=== PATIENT | female | born 1985 | race Caucasian/White ===

== ENCOUNTER 2025-04-29 09:27 | Outpatient (AMB) | payer OTHER, SELFPAY ==
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
[2025-04-29 09:38] VITALS: BP 129/62; PULSE 62; RESP 14; TEMP 36.7; O2SAT 98; BMI 19.4
--- OUTSIDE RECORDS SUMMARY | 2025-04-29 09:50 | XMS_ITS | Clinical Summary ---
Author Organization [address] Address [address] [place] [phone] Phone Care Team Providers Care Spanish Lecturer Name Role Phone Idalmis Rosario MD Primary Care Provider [phone] Allergies Active Allergy Reactions Criticality Noted Date Comments Penicillins 01/08/2009 N/v diarrhia Medications copper (ParaGard T 380A) 380 square mm IUD 1 Device by Intrauterine route Once. [facility] 9 Active Active Problems Problem Noted Date Diagnosed Date Elevated LDL cholesterol level 10/13/2018 Elevated random blood glucose level 10/13/2018 Depressed mood 09/27/2018 Immunizations Name Administration Dates Next Due HPV 9-valent (Gardisil) 9yo to less than 46yo Td Tetanus diptheria (Tdvax) 7yo and older 01/20 Tdap Tetanus diptheria acell ular pertussis (Boostrix; Adacel) 7yo and older 02/02/2021 Surgical History Surgery Date Site/Laterality Comments DENTAL SURGERY PROCEDURE: [place] UNLISTED PROCEDURE DENTOALVEOLAR STRUCTURES SECTION PROCEDURE: HISTORICAL DELIVERY SECTION, LOW TRANSVERSE 2018 Medical History Medical History Date Comments Marijuana abuse DX:Marijuana abu se IUD (intrauterine device) in place 2017 DX:IUD (intrauterine device) in place; COMMENT: Paragard, placed at [facility] Abnormal Pap smear of cervix 2004 Gestational diabetes 2012 Family History Medical History Relation Name Comments Alcohol abuse Father KG Brain Aneurysm Father KG now has verti go Cancer Father KG Mental illness Father KG Stroke Father KG Genetic Disorder Father's Sister BG Dementia Maternal Grandmother BS Miscarriages / Stillbirths Maternal Grandmother BS Diabetes Mother CG Hypertension Mother CG Other: breast cyst Mother CG Heart disease Paternal Grandfather AG Developmental delay Son JL Seizures Son JL Breast cancer Neg Hx Colon cancer Neg Hx Kidney cancer Neg Hx Ovarian cancer Neg Hx Pancreatic cancer Neg Hx Uterine cancer Neg Hx Relation Name Status Comments Brother Alive healthy Father KG Alive HTN Father's Sister BG Maternal Grandfather lung ca ncer Maternal Grandmother BS Mother CG Alive HTN, allergic a sthma Paternal Grandfather AG CO at ? age Paternal Grandmother lung ca ncer Son JL Social History Tobacco Use Types Packs/Day Years Used Date Smoking Tobacco: Every Day Cigarettes 0.5 3 Last attempted to quit: 01/23/2018 Smokeless Tobacco: Never Tobacco Cessation:Ready to Q uit: Not Asked; Counseling Given: Not Answered Alcohol Use Standard Drinks/Week Comments Not Currently 0 (1 standard drink = 0.6 oz pur e alcohol) Housing Instability Answer Date Recorde d Are you worried that in the next 2 months you may not have stable housing? No 09/07/2024 Food Access & Nutrition Answer Date Rec orded Do you have access to a vari ety of food including fruits and vegetables? Yes 09/07/2024 Access to Healthcare Answer Date Record ed Within the last 3 months, ho w many times did you visit the emergency department for your medical care? 0 09/07/2024 Health Literacy Answer Date Recorded How often do you need to hav e someone help you when you read instructions, pamphlets, or other written material from your doctor or pharmacy? Rarely 09/07/2024 Caregiver: How often do you need to have someone help you when you read instructions, pamphlets, or other written material from your doctor or pharmacy? Not on file 09/07/2024 Financial Risk Answer Date Recorded How hard is it for you to pa y for the very basics like food, housing, medical care, and air conditioning / heating? Not very hard 09/07/2024 Transportation Answer Date Recorded Has the lack of transportati on kept you from meetings, work, or from getting things needed for daily living? No Has the lack of transportati on kept you from medical appointments or from getting medications? No 09/07/2024 Social Isolation Answer Date Recorded How often do you feel lonely or isolated from th ose around you? Often 09/07/2024 Food Risk Answer Date Recorded Within the past 12 months we worried whether our food would run out before we got money to buy more. Sometimes true 024 Within the past 12 months th e food we bought just didn't last and we didn't have money to get more. Sometimes true 09/07/2024 Dependent Care Answer Date Recorded Do you need help finding or paying for care for your loved ones. For example, child psychologist or elderly care for an older adult? No 09/07/2024 Education Answer Date Recorded Do you think completing more education or training, like finishing a GED, going to college, or learning a trade, would be helpful for you? Yes 09/07/2024 Employment and Income Answer Date Recor ded During the last four weeks, have you been actively looking for work? No 09/07/2024 Living Situation Answer Date Recorded What is your living situation? 1 11/08/2023 Comments No Sex and Gender Information Value Date Recorded Sex Assigned at Not on file Legal Sex Female 9:51 PM EST Gender Identity Not on file Sexual Orientation Not on file Obstetrics History Para Term AB IAB SAB Ectopic Multiple Livin g Live Births 3 3 2 1 0 0 0 0 0 2 3 Date Outcome GA Total Labor Labor/2nd/3rd Weight Sex Type Anes PTL Gena A1 A5 Name Clin Term Vag-S pont Livin g Term CS-Un spec Livin g 010 24w 5d 432 g (15.2 oz) F Vag-S pont Y Neona sang Demis e 0 0 Loreto Anne [place] Delivery Location:[facility] Comments:IUFD, CAN x 2 tight Last Filed Vital Signs Vital Sign Reading Time Taken Comments Blood Pressure 116/67 09/09/2024 2:47 PM EST Pulse 65 09/09/2024 2:47 PM EST Temperature 36.9 C (98.4 F) 09/09/2024 2:47 PM EST Respiratory Rate 14 09/09/2024 2:47 PM EST Oxygen Saturation - - Inhaled Oxygen Concentration - - Weight 48.3 kg (106 lb 6.4 oz) 09/09/2024 2:47 P M EST Height 160 cm (5' 3 ) 09/09/2024 2:47 PM EST Body Mass Index 18.85 09/09/2024 2:47 PM EST Plan of Treatment Upcoming Encounters Date Type Department Care Team (Late st Contact Info) Description 09/16/2025 9:45 AM EST Office Visit Obstetrics and Gynecology - [place] [address] [place] [phone] Tatiana Lemus, CNM [address] [place] [address] Health Maintenance Due Date Last Done Comments Hepatitis B Vaccines (1 of 3 - 19+ 3-dose series) 2002 Pneumococcal Vaccine: Pediatrics (0 to 5 Years) and At-Risk Patients (6 to 49 Years) (1 of 2 - PCV) 2002 Hepatitis C Screening 08/27/2022 COVID-19 Vaccine (1 - 2023-2 5 season) 2024 Depression Screening 09/25/2024 09/07/2024 HPV Vaccines (2 - 3-dose SCD M series) 10/07/2024 09/09/2024 Influenza Vaccine (#1) 2025 Social Influencers of Health Screening 09/07/2025 09/07/2024 Breast Cancer Screening 12/17/2025 12/18/19 24, 12/18/2023 Cholesterol Screening (Lipid Panel) 07/13/2026 07/13/2021 Cervical Cancer Screening: HPV 09/09/2029 1 11/10/2023, 05/22/2019 DTaP,Tdap,and Td Vaccines (3 - Td or Tdap) 02/02/2031 02/02/2021, 01/20/2009 HIV Screening Completed 11/19/2009 HIB Vaccines Aged Out No longer eligi ble based on patient's age to complete this topic Hepatitis A Vaccines Aged Out No long er eligible based on patient's age to complete this topic IPV Vaccines Aged Out No longer eligi ble based on patient's age to complete this topic MMR Vaccines Aged Out No longer eligi ble based on patient's age to complete this topic Meningococcal ACWY Vaccine Aged Out N o longer eligible based on patient's age to complete this topic Meningococcal B Vaccine Aged Out No l onger eligible based on patient's age to complete this topic RSV Immunization Patients Under 20 months Aged Out No longer eligible b ased on patient's age to complete this topic Varicella Vaccines Aged Out No longer eligible based on patient's age to complete this topic Procedures Procedure Name Priority Date/Time Associated Diagnosis Comments HPV WITH REFLEX GENOTYPE Routine 09/09/2024 3:17 PM EST Encounter for gynecological examination without abnormal finding SCREENING MAMMOGRAPHY BI 2-VIEW BREAST INC CAD Routine 12/18/2023 4:58 PM EDT Encounter for other screening for malignant neoplasm of breast LIPID PANEL Routine 07/13/2021 HM HIV SCREENING Routine 11/19/2009 from Last 3 Months or Most Recently Relevant to Health Maintenance Results * HPV with reflex genotype (09/09/2024 3:17 PM EST) HPV Negative Negative LAB MICROBIOLOGY METHOD 09/11/2024 2:25 PM EST [facility] [place] Cervix uteri structure / Unknown 09/09/2024 3:17 PM EST 09/11/2024 6:52 AM EST Mary APONTE LAB MOLECULAR DIAGNOSTICS O RDERABLES Final Result [facility] [address] [place] [address], * SCREENING MAMMOGRAPHY BI 2-VIEW BREAST INC CAD (12/18/2023 4:58 PM EDT) Anatomical Region Laterality Modality Radiographic Sharmila ging 12/13/2023 3:38 PM EDT Narrative 12/19/2023 2:18 PM EDT This is a summary report. The complete report is available in the patient's medical record. If you cannot access the medical record, please contact the sending organization for a detailed fax or copy. Exam: Screening mammogram Findings: Digital bilateral full-field screening mammography is performed with tomosynthesis and interpreted with the aid of computer-aided detection. This is a baseline exam. Breast parenchyma is extremely dense, limiting mammographic sensitivity. No suspicious mass, architectural distortion, or suspicious calcifications identified. Impression: No mammographic evidence of malignancy. BI-RADS 1 - negative Procedure Note Gosia Ge MD - 05/13/2024 This is a summary report. The complete report is available in thepatient's medical record. If you cannot access the medical record, pleasecontact the sending organization for a detailed fax or copy. Exam: Screening mammogram Findings: Digital bilateral full-field screening mammography is performedwith tomosynthesis and interpreted with the aid of computer-aideddetection. This is a baseline exam. Breast parenchyma is extremely dense, limiting mammographic sensitivity.No suspicious mass, architectural distortion, or suspicious calcificationsidentified. Impression: No mammographic evidence of malignancy. BI-RADS 1 - negative Idalmis Rosario MD IMG XR PROCEDURES Final Result * Lipid panel (07/13/2021) Pathologist [facility] LDL/HDL Ratio 3 0 - 4 Triglycerides 78 0 - 150 mg/dL Cholesterol 148 0 - 200 mg/dL HDL 60 >=40 mg/dL LDL Cholesterol 73 0 - 100 mg/dL Blood Venous blood specimen / Unknown Historical Provider LAB BLOOD ORDERABLES Marisa l Result * HIV Screening (11/19/2009) Pathologist [facility] HIV Screening Abstracted Historical Provider HEALTH MAINTENANCE Final Result from Last 3 Months or Most Recently Relevant to Health Maintenance Insurance [facility] [employer] Care Teams Spanish Lecturer Relationship Specialty Start Date End Date Idalmis Rosario MD [address] [place] [phone] PCP - General Internal Medicine 03/02/22
== END 2025-04-29 09:59 | disposition home or self-care (01) ==
LOC: HO.HMCSH 09:27
PROVIDERS: PCP Internal Medicine; Visit Provider Internal Medicine
DX: E78.5 Hyperlipidemia, unspecified (principal); M54.2 Cervicalgia

== ENCOUNTER → 2025-04-29 09:27 | Outpatient (BNVA) | payer OTHER, SELFPAY | PROVIDERS: PCP Internal Medicine; Visit Provider Internal Medicine | DX: M54.2 Cervicalgia (principal); E78.5 Hyperlipidemia, unspecified; H53.8 Other visual disturbances; H91.90 Unspecified hearing loss, unspecified ear | CPT/HCPCS: 99202 ==

== ENCOUNTER 2025-05-07 09:32 | Outpatient (REF) | payer OTHER, SELFPAY ==
--- NOTE | ~2025-05-07 | XR_ITS ---
EXAMINATION: XR CERVICAL SPINE CLINICAL INFORMATION: M54.2 - Cervicalgia COMPARISON: None available. TECHNIQUE: 4 views of the cervical spine were obtained. FINDINGS: No subluxation. No compression fracture. Degenerative changes with mild disc space narrowing and small marginal osteophytes at C6-C7. Odontoid process is well aligned with the lateral masses of C1. XR/XR cervical spine 3V IMPRESSION: Mild degenerative changes at C6-C7. Electronically signed by: Sarah Emerson MD 05/07/2025 10:35 AM EDT
--- OUTSIDE RECORDS SUMMARY | 2025-05-07 10:01 | XMS_ITS | Clinical Summary ---
Author Organization [address] Address [address] [place] [phone] Phone Care Team Providers Care Quality Rn Name Role Phone Idalmis Rosario MD Primary Care Provider [phone] Allergies Active Allergy Reactions Criticality Noted Date Comments Penicillins 01/08/2009 N/v diarrhia Medications copper (ParaGard T 380A) 380 square mm IUD 1 Device by Intrauterine route Once. [facility] 9 Active Active Problems Problem Noted [...] Surgery Date Site/Laterality Comments DENTAL SURGERY PROCEDURE: [place] UNLISTED PROCEDURE DENTOALVEOLAR STRUCTURES SECTION PROCEDURE: HISTORICAL DELIVERY SECTION, LOW TRANSVERSE 2018 Medical History Medical History Date Comments Marijuana abuse DX:Marijuana abu se IUD (intrauterine device) in place 2017 DX:IUD (intrauterine device) in place; COMMENT: Paragard, [place] [facility] Abnormal Pap smear of cervix 2004 Gestational [...] HTN, allergic a sthma Paternal Grandfather AG ND at ? age Paternal Grandmother lung ca [...] for your loved ones. For example, child and family services specialist or elderly care for an older adult? [...] sang Demis e 0 0 L[place]to Anne [place] Delivery Location:[facility] Comments:IUFD, CAN x 2 tight Last Filed [...] EST Office Visit Obstetrics and Gynecology - [place] [address] [place] [phone] Tatiana Lemus, CNM [address] [place] [address] Health Maintenance Due Date Last Done Comments [...] LAB MICROBIOLOGY METHOD 09/11/2024 2:25 PM EST [facility] [place] Cervix uteri structure / Unknown 09/09/2024 3:17 PM EST 09/11/2024 6:52 AM EST Mary APONTE LAB MOLECULAR DIAGNOSTICS O RDERABLES Final Result [facility] [address] [place] [address], * SCREENING MAMMOGRAPHY BI 2-VIEW BREAST INC [...] Final Result * Lipid panel (07/13/2021) Pathologist [facility] LDL/HDL Ratio 3 0 - 4 Triglycerides 78 0 - 150 mg/dL Cholesterol 148 0 - 200 mg/dL HDL 60 >=40 mg/dL LDL Cholesterol 73 0 - 100 mg/dL Blood Venous blood specimen / Unknown Historical Provider LAB BLOOD ORDERABLES Marisa l Result * HIV Screening (11/19/2009) Pathologist [facility] HIV Screening Abstracted Historical Provider HEALTH MAINTENANCE Final Result from Last 3 Months or Most Recently Relevant to Health Maintenance Insurance [facility] [employer] Care Teams Quality Rn Relationship Specialty Start Date End Date Idalmis Rosario MD [address] [place] [id number] PCP - General Internal Medicine 03/02/22
[2025-05-07 13:39] LABS: Appearance Urine Cloudy; Glucose Urine UA Negative (Negative); PH 5.5 (5.0-9.0); Specific Gravity - Urine 1.025 (1.005-1.025); UMIC TRIGGER UA YES
[2025-05-07 13:42] LABS: Hematocrit 42.4 % (37.0-47.0); Hemoglobin 13.9 g/dl (12.0-16.0); Mean Corpuscular HGB Conc 32.8 g/dl (31.0-35.0); Mean Corpuscular Hemoglobin 32.7 pg (27.0-33.0); Mean Corpuscular Volume 99.8 fL (80.0-98.0); NRBC Abs Auto 0.000 X10*3/uL (0.0-0.012); NRBC Pct Auto 0.0 /100WBC (0.0-0.2); Platelet Count 262 X10*3/uL (160-400); Red Blood Count 4.25 X10*6/uL (4.20-5.50); White Blood Count 7.2 X10*3/uL (4.8-10.8)
[2025-05-07 14:28] LABS: Alanine Aminotransferase 26 U/L (0-31); Albumin Level 4.6 g/dL (3.5-5.0); Alkaline Phosphatase 53 U/L (39-117); Anion Gap 13 (12-20); Aspartate Amino Transferase 32 U/L (5-31); Blood Urea Nitrogen 16 mg/dL (9-16); Calcium 9.1 mg/dL (8.4-10.2); Carbon Dioxide 29 mmol/L (22-29); Chloride 104 mmol/L (96-108); Cholesterol 200 mg/dL (<200); Estimated Glomerular Filt Rate > 60; HDL Cholesterol 61 mg/dL (>40); Potassium 3.7 mmol/L (3.3-5.1); Sodium 142 mmol/L (135-145); Total Protein 7.1 g/dL (6.5-8.0); Triglycerides 73 mg/dL (<150)
[2025-05-07 14:51] LABS: Thyroid Stimulating Hormone 0.99 uIU/mL (0.32-4.0)
== END 2025-05-07 09:33 | disposition home or self-care (01) ==
LOC: HO.HMGCX 09:32
PROVIDERS: PCP Internal Medicine; Visit Provider Internal Medicine
DX: M54.2 Cervicalgia (principal); E78.5 Hyperlipidemia, unspecified
CPT/HCPCS: 36415; 72040; 80048; 80061; 80076; 81001; 84443; 85027

== ENCOUNTER → 2025-05-07 09:52 | Outpatient (BNV) | payer OTHER, SELFPAY | PROVIDERS: PCP Internal Medicine; Visit Provider Radiology Body Imaging | DX: M54.2 Cervicalgia (principal) | CPT/HCPCS: 72040 ==

== ENCOUNTER 2025-06-19 13:32 | Outpatient (REF) | payer OTHER, SELFPAY | END 2025-06-19 13:33 | disposition home or self-care (01) | LOC: HO.SH 13:32 | PROVIDERS: Visit Provider Internal Medicine | DX: Z01.118 Encounter for examination of ears and hearing with other abnormal findings (principal); H90.3 Sensorineural hearing loss, bilateral | CPT/HCPCS: 92557 ==

== ENCOUNTER 2025-08-02 09:47 | Outpatient (REF) | payer OTHER, SELFPAY ==
--- OUTSIDE RECORDS SUMMARY | 2025-08-02 09:50 | XMS_ITS | Clinical Summary ---
Author Organization [address] Address [address] [place] [phone] Phone Care Team Providers Care Restaurant Worker Name Role Phone Idalmis Rosario MD Primary Care Provider [phone] Allergies Active Allergy Reactions Criticality Noted Date Comments Penicillins 01/08/2009 N/v diarrhia Medications copper (ParaGard T 380A) 380 square mm IUD 1 Device by Intrauterine route Once. [facility] 9 Active Active Problems Problem Noted Date Diagnosed Date Elevated LDL cholesterol level 10/13/2018 Elevated random blood glucose level 10/13/2018 Depressed mood 09/27/2018 Immunizations Immunization Administration Dates Next Due HPV 9-valent (Gardisil) 9yo to less than 46yo Td Tetanus diptheria (Tdvax) 7yo and older 01/20 Tdap Tetanus diptheria acell ular pertussis (Boostrix; Adacel) 7yo and older 02/02/2021 Surgical History Surgery Date Site/Laterality Comments DENTAL SURGERY PROCEDURE: [place] UNLISTED PROCEDURE DENTOALVEOLAR STRUCTURES SECTION PROCEDURE: HISTORICAL DELIVERY SECTION, LOW TRANSVERSE 2018 Medical History Medical History Date Comments Marijuana abuse DX:Marijuana abu se IUD (intrauterine device) in place 2017 DX:IUD (intrauterine device) in place; COMMENT: [place] [facility] [place] Pap smear of cervix 2004 Gestational [...] HTN, allergic a sthma Paternal Grandfather AG [place] at ? age Paternal Grandmother lung ca [...] care for your loved ones. For example, registered nurse maternal child or elderly care for an older adult? [...] Date Recorded What is your living situation? Unrecognized valu e 09/07/2024 Comments No Sex and Gender Information Value Date Recorded Sex Assigned at Not on file Legal Sex Female 9:51 PM EST Gender Identity Not on file Sexual Orientation Not on file Obstetrics History Para Term AB IAB SAB Ectopic Multiple Livin g Live Births 3 3 2 1 0 0 2 3 Date Outcome GA Total Labor Labor/2nd/3rd Weight Sex Type Anes PTL Gena A1 A5 Name Clin Term Vag-S pont Livin g Term CS-Un spec Livin g 010 24w 5d 432 g (15.2 oz) F Vag-S pont Y Neona sang Demis e 0 0 Loreto Rodríguez [place] Delivery Location:[facility] Comments:IUFD, CAN x 2 tight Last [...] EST Office Visit Obstetrics [facility]ne[facility] - [place] [address] [facility] [phone] Tatiana Lemus, CN [address] [facility] Health Maintenance Due Date Last Done Comments Hepatitis B Vaccines (1 of 3 - 19+ 3-dose series) 2002 Pneumococcal Vaccine: Pediatrics (0 to 5 Years) and At-Risk Patients (6 to 49 Years) (1 of 2 - PCV) 2002 Hepatitis C Screening 08/27/2022 Depression Screening 09/25/2024 09/07/2024 HPV Vaccines (2 - 3-dose SCD M series) 10/07/2024 09/09/2024 COVID-19 Vaccine (2023-2 5 season) 2025 Influenza Vaccine (#1) 2025 Social Influencers of Health Screening 09/07/2025 09/07/2024 Breast Cancer Screening 12/17/2025 12/18/19 24, 12/18/2023 Cholesterol Screening (Lipid Panel) 07/13/2026 07/13/2021 Cervical Cancer Screening: HPV 09/09/2029 1 11/10/2023, 05/22/2019 DTaP,Tdap,and Td Vaccines (3 - Td or Tdap) 02/02/2031 02/02/2021, 01/20/2009 RSV Immunization Adult Patients (1 - 1-dose 75+ series) 2058 HIV Screening Completed 11/19/2009 HIB Vaccines Aged [...] LAB MICROBIOLOGY METHOD 09/11/2024 2:25 PM EST [facility] Cervix uteri structure / Unknown 09/09/2024 3:17 PM EST 09/11/2024 6:52 AM EST Mary APONTE LAB MOLECULAR DIAGNOSTICS O RDERABLES Final Result [facility] [address] [place] [address], * SCREENING MAMMOGRAPHY BI 2-VIEW BREAST INC [...] Final Result * Lipid panel (07/13/2021) Pathologist [facility] LDL/HDL Ratio 3 0 - 4 Triglycerides 78 0 - 150 mg/dL Cholesterol 148 0 - 200 mg/dL HDL 60 >=40 mg/dL LDL Cholesterol 73 0 - 100 mg/dL Blood Venous blood specimen / Unknown Historical Provider LAB BLOOD ORDERABLES Marisa l Result * HIV Screening (11/19/2009) Pathologist [facility] HIV Screening Abstracted Historical Provider HEALTH MAINTENANCE Final Result from Last 3 Months or Most Recently Relevant to Health Maintenance Insurance [facility] Care Teams Restaurant Worker Relationship Specialty Start Date End Date Idalmis Rosario MD [address] [place] [phone] PCP - General Internal Medicine 03/02/22
== END 2025-08-02 09:48 | disposition home or self-care (01) ==
LOC: HO.MAMMO 09:47
PROVIDERS: PCP Internal Medicine; Visit Provider Internal Medicine
DX: Z12.31 Encounter for screening mammogram for malignant neoplasm of breast (principal)
CPT/HCPCS: 77063; 77067

== ENCOUNTER → 2025-08-02 10:00 | Outpatient (BNV) | payer OTHER, SELFPAY | PROVIDERS: PCP Internal Medicine; Visit Provider Internal Medicine | DX: Z12.31 Encounter for screening mammogram for malignant neoplasm of breast (principal) | CPT/HCPCS: 77063; 77067 ==

== ENCOUNTER 2025-08-19 14:57 | Outpatient (AMB) | payer OTHER, SELFPAY ==
[2025-08-19 15:00] VITALS: BP 125/58; PULSE 72; RESP 14; TEMP 36.7; O2SAT 99; BMI 19.4
--- NOTE | 2025-08-19 15:00 | A.OFFPC_ITS ---
Vital Signs 08/19/25 15:00 Height 5 ft 2.6 in Weight 108 lb BMI 19.4 BP 125/58 L Blood Pressure Location Lt brachial Position Sitting Respiration 14 Pulse 72 Pulse Source Pulse Oximeter Temp 98.1 F Temp Source Temporal Artery Scan Pulse Oximetry (%) 99 Oxygen Delivery Method Room Air Intake Visit Reasons: 3 month follow up Csw Required: No Accompanied by: Self / Same As Patient Allergies penicillin V Allergy (Unknown, Verified 08/19/25 15:01) N/V/D (childhood) Tobacco use date assessed: 08/19/25 Dental Screening Dental Screen Date: 04/29/25 HPI HPI Comments History of Present Illness Details History of Present Illness - The patient is a 40 year old individua l presenting for a three-month follow- up. - Following a recent audiology evaluatio n, the patient was diagnosed with moderate to severe hearing loss in both ears. - The dining room hostess informed the patient t hat the health insurance does not cover hearing aids and provided information for [employer], with which the patient has not yet followed up. - The patient reports ongoing neck pain and had a neck X-ray which revealed degenerative changes at C6-C7. - The patient experienced significant ne ck and upper back pain recently and sometimes notices a cracking sensation with head movement. - Previous concerns about progressive vi chanel blurriness have improved, and the patient reports no significant difficulties with driving or reading currently. - The patient reports doing well cogniti vely, despite a history of depression in 2018. - A mammogram was normal, though it show ed some density. - The patient smokes about 10 cigarettes a day and drinks alcohol very rarely. Social History - The patient lives with a and t wo children, ages 12 and 8. - The patient reports having support fro m the . - The patient works as a paraprofessiona l at an elementary school and reports being happy with the job. - The patient is able to function and pe rform all activities, reporting that stress is manageable. - Alcohol use is reported as very rare. - The patient smokes approximately 10 ci garettes per day. Results - Audiology: Testing revealed moderate t o severe hearing loss in both ears. - Imaging: X-ray of the neck showed dege nerative changes at C6_C7. - Mammogram: Normal, with some density r eported. [facility] Medical History (Updated 08/19/25 @ 15:19 by Moe Villeda MD) DJD (degenerative joint disease) of cervical spine Hyperlipidemia Family History Father BP (high blood pressure) Mother BP (high blood pressure) Diabetes Social History Housing: House Alcohol intake: current Alcohol intake frequency: holidays/special occasions only Patient Tobacco Use Status: Current everyday Tobacco user Cigarettes Per Day: 10 service: No Current occupational status: employed Cognitive needs: No Hearing needs: No Vision needs: No Questionnaire PHQ-9 Over the last 2 weeks, how often have you been bothered by any of the following problems? 1. Little interest or pleasure in doing things: not at all 2. Feeling down, depressed, or hopeless: not at all 3. Trouble falling or staying asleep, or sleeping too much: not at all 4. Feeling tired or having little energy: not at all 5. Poor appetite or overeating: not at all 6. Feeling bad about yourself - or that you are a failure or have let yourself or your family down: not at all 7. Trouble concentrating on things, such as reading the newspaper or watching television: not at all 8. Moving or speaking so slowly that other people could have noticed. Or the opposite - being so fidgety or restless that you have been moving around a lot more than usual: not at all 9. Thoughts that you would be better off or of hurting yourself in some wa y: not at all Total score: 0 Source: Developed by Drs. Juan Reed, Neris Sams, Hugo Humphreys and colleagues, with an educational morgan from [employer]. Thrive Questionnaire Date Thrive assessed: 04/29/25 I am a: Patient What is your living situation today?: I have a steady place to live Within the past 12 months, did the food you bought not last and you didn't have the money to get more?: Never true Within the past 12 months, did you worry whether your food would run out before you got money to buy more?: Never true Do you have trouble paying for medicines?: No Do you have trouble getting transportation to medical appointments?: No Do you have trouble paying your heating and electricity bill?: No Do you have trouble taking care of your child, family member or friend?: No Do you have trouble with day-to-day activities such as bathing, preparing meals, shopping, managing finances, etc.?: No Are you currently unemployed and looking for a job?: No Are you interested in more education?: No Please select the resources that you would like help with: None THRIVE Score: 0 AUDIT C Alcohol Use Questionnaire (AUDIT-C) 1. How often do you have a drink containing alcohol?: Monthly or less 2. How many drinks containing alcohol do you have on a typical day when you are drinking?: 1 or 2 3. How often do you have six or more drinks on one occasion?: Never Total Score: 1 ADAIR-7 AMB Questionnaire ADAIR-7 Date ADAIR - 7 assessed: 04/29/25 Feeling nervous, anxious, or on edge: 0 = Not at all Not being able to stop or control worryin = Not at all Worrying too much about different things: 0 = Not at all Trouble relaxin = Not at all Being so restless that it is hard to sit still: 0 = Not at all Becoming easily annoyed or irritable: 0 = Not at all Feeling afraid as if something awful might happen: 0 = Not at all Total ADAIR-7 score (0-4 normal; 5-9 mild; 10-14 moderate; 15-21 severe): 0 Source: Developed by Drs. Juan Rede, Neris Sams, Hugo Humphreys and colleagues, with an educational morgan from [employer]. Review of Systems Narrative Review of Systems - Eyes: Reports previous progressive blurriness has improved. Denies current significant vision difficulties. - ENT: Reports moderate to severe hearing loss in both ears. - Musculoskeletal: Reports neck and upper back pain, with occasional cracking sensation on head tilting. - Psychiatric: Denies significant stress or decline in cognitive function; reports sleeping well. Physical exam (Primary Care) Vital Signs: Last Vital Signs Temp 98.1 F 08/19/25 15:00 Pulse 72 08/19/25 15:00 Resp 14 08/19/25 15:00 BP 125/58 L 08/19/25 15:00 Pulse Ox 99 08/19/25 15:00 Oxygen Delivery Method Room Air 08/19/25 15:00 BMI result Body Mass Index 19.4 Tobacco/Smoking Status: Tobacco use Status Tobacco use date assessed 08/19/25 08/19/25 15:06 Patient Tobacco Use Status Current everyday Tobacco 08/19/25 15:06 PHQ-9: PHQ-9 Score PHQ-9: Total score 0 08/19/25 15:06 Thrive Assessment: Date of Thrive Assessment Date Thrive assessed 04/29/25 08/19/25 15:06 Narrative Physical Exam General: Appearance normal, both eyes and all related structures Nutritional Appearance: Well nourished Orientation/consciousness: Patient oriented x3 Limitations: No limitations Head: Normal to inspection Neck: C6, C7 degenerative changes noted; physical therapy recommended Chest: Normal palpation of entire chest wall Respiratory: Normal respiratory effort Neurology: Patient oriented x3 Office Procedures Flu Questionnaire Does the patient have a severe egg allergy?: No Does the patient have severe life threatening allergies?: No Does the patient have a fever or illness today?: No Has the patient ever had Guillain-Beeler Syndrome?: No Has the patient ever had any past reaction to a flu shot?: No Immunizations Fluarix [id number] (PF) 45 mcg (15 mcg x 3)/0.5 mL IM syringe Performing Provider: Moe Villeda MD [facility] [facility] [place] [facility] Documented (not given) by: RINA Ny on 08/19/25 15:06 Reason Not Given: Patient Refused Coding Level of Care Code Complex visit Add On G2211 Diagnoses DJD (degenerative joint disease) of cervical spine M47.812 Assessment & Plan Assessment & Plan (1) DJD (degenerative joint disease) of cervical spine: Code(s): M47.812 - Spondylosis without myelopathy or radiculopathy, cervical region Category: Medical Plan Plan - The patient is advised to schedule a hearing aid consultation. - The patient may seek funding for a hearing aid and should contact [employer] for information. - An order for physical therapy for neck pain will be placed. - The patient will follow up in six months. Discussion Notes I discussed the patient's recent audiology results, which indicated moderate to severe hearing loss in both ears. I advised the patient to proceed with a hearing aid consultation and to contact [employer] for potential funding, as insurance may not cover the cost. We also reviewed the patient's neck x-ray, which showed degenerative changes at C6-C7, and I recommended initiating physical therapy for the persistent neck pain. We noted the improvement in the patient's previously reported vision blurriness and the patient's currently stable mood and cognitive function. A follow-up was scheduled for six months. Patient Instructions - You were diagnosed with moderate to severe hearing loss. Please schedule a hearing aid consultation to discuss your options. - Since your insurance may not cover hearing aids, you should contact organizations like [employer] that may be able to help with funding. - I am ordering physical therapy to help with your neck pain. - Please schedule a follow-up appointment in six months. Orders: Orders PT Evaluation and Treatment Today M47.812 - Spondylosis without myelopathy or radiculopathy, cervical region Influenza [id number] Immunization Today Z23 - Encounter for immunization
--- OUTSIDE RECORDS SUMMARY | 2025-08-19 18:42 | XMS_ITS | Clinical Summary ---
Author Organization [address] Address [address] [place] [phone] Phone Care Team Providers Care Glove Turner Name Role Phone Idalmis Rosario MD Primary Care Provider [phone] Allergies Active Allergy Reactions Criticality Noted Date Comments Penicillins 01/08/2009 N/v diarrhia Medications copper (ParaGard T 380A) 380 square mm IUD 1 Device by Intrauterine route Once. [facility] 9 Active Active Problems Problem [...] Surgery Date Site/Laterality Comments DENTAL SURGERY PROCEDURE: [place] UNLISTED PROCEDURE DENTOALVEOLAR STRUCTURES SECTION PROCEDURE: HISTORICAL DELIVERY SECTION, LOW TRANSVERSE 2018 Medical History Medical History Date Comments Marijuana abuse DX:Marijuana abu se IUD (intrauterine device) in place 2017 DX:IUD (intrauterine device) in place; COMMENT: [place] [facility] [place] Abnormal Pap smear of cervix 2004 Gestational [...] HTN, allergic a sthma Paternal Grandfather AG [place] at ? age Paternal Grandmother lung ca [...] for your loved ones. For example, child life assistant or elderly care for an older adult? [...] sang Demis e 0 0 Loreto Rodríguez [place] Delivery Location:[facility] Comments:IUFD, CAN x 2 tight Last [...] EST Office Visit Obstetrics [facility] [place] [address] [facility] [place] [phone] Tatiana Lemus, CN [address] [facility] [place] Health Maintenance Due Date Last Done Comments Hepatitis B Vaccines (1 of 3 - 19+ 3-dose series) 2002 Pneumococcal Vaccine: Pediatrics (0 to 5 Years) and At-Risk Patients (6 to 49 Years) (1 of 2 - PCV) 2002 Hepatitis C Screening 08/27/2022 Depression Screening 09/25/2024 09/07/2024 HPV Vaccines (2 - 3-dose SCD M series) 10/07/2024 09/09/2024 COVID-19 Vaccine ( - 2024-2 6 season) 2025 Influenza Vaccine (#1) 2025 Social [...] LAB MICROBIOLOGY METHOD 09/11/2024 2:25 PM EST [facility] Cervix uteri structure / Unknown 09/09/2024 3:17 PM EST 09/11/2024 6:52 AM EST Mary APONTE LAB MOLECULAR DIAGNOSTICS O RDERABLES Final Result [facility] [address] [place] [address], * SCREENING MAMMOGRAPHY BI 2-VIEW BREAST INC [...] Most Recently Relevant to Health Maintenance Insurance [facility] [place] [phone] Care Teams Glove Turner Relationship Specialty Start Date End Date Idalmis Rosario MD [address] [place] [phone] PCP - General Internal Medicine 03/02/22
== END 2025-08-19 15:27 | disposition home or self-care (01) ==
LOC: HO.HMCSH 14:57
PROVIDERS: PCP Internal Medicine; Visit Provider Internal Medicine
DX: M47.812 Spondylosis without myelopathy or radiculopathy, cervical region (principal); Z23 Encounter for immunization

== ENCOUNTER → 2025-08-19 14:57 | Outpatient (BNVA) | payer OTHER, SELFPAY | PROVIDERS: PCP Internal Medicine; Visit Provider Internal Medicine | DX: M47.812 Spondylosis without myelopathy or radiculopathy, cervical region (principal); H91.93 Unspecified hearing loss, bilateral; H53.8 Other visual disturbances; Z28.21 Immunization not carried out because of patient refusal | CPT/HCPCS: 90471; 99212 ==